=== PATIENT | female | born 1990 | race Caucasian/White ===

== ENCOUNTER 2019-07-04 23:25 | Inpatient (IN) | payer OTHER ==
[2019-07-05] MEDS: DEXTROSE 5%-LACTATED RINGERS 1,000 ML IV SCH ×2 (00:15→02:45)
[2019-07-05 00:58] LABS: BASO % 0.4 % (0-2.0); EOS % 0.8 % (0-4.5); HEMATOCRIT 31.6 % (32.4-45.2); LYMPH % 33.9 % (8-40); MCH 24.6 pg (25.7-33.7); MCHC 31.7 g/dl (32.0-36.0); MEAN CELL VOLUME 77.6 fl (80-96); MEAN PLT VOLUME 11.4 fl (7.5-11.1); MONO % 8.4 % (3.8-10.2); NEUT % 56.5 % (42.8-82.8); PLATELET COUNT 122 K/MM3 (134-434); RBC 4.07 M/mm3 (3.60-5.2); RDW 16.2 % (11.6-15.6); WHITE BLOOD COUNT 8.5 K/mm3 (4.0-10.0)
[2019-07-05 01:00] VITALS: BMI 25.7
--- NOTE | 2019-07-05 01:03 | HP ---
Past Medical History - Admission Chief Complaint: SROM History of Present Illness: 29yo @ 39.5wks here with SROM, occ ctx. No VB. 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 Weeks Gestation by Dates: 39.5 ...EDC by Dates: 07/06/19 Heme/Onc: Yes: Anemia (rx po iron & Pnv) Infectious Disease: Yes: STD's (HPV Hr pos). No: AIDS, C-Diff, Herpes Zoster, HIV, MRSA, Tuberculosis, VREF, Other Psych: No: Addictions, Anxiety, Bipolar, Depression, Panic, Psychosis, Schizophrenia, Other Rheumatology: No: Fibromyalgia, Gout, Lupus, Rheumatoid Arthritis, Sarcoidosis, Vasculitis, Other ENT: No: Allergic Rhinitis, Sinusitis, Other Endocrine: No: Gilchrist's Disease, Boise's Disease, Diabetes Insipidus, Diabetes Mellitus, Hyperparathyroidism, Hyperthyroidism, Hypothyroidism, Osteopenia, SIADH, Other - Past Surgical History Past Surgical History: Yes: None Hx Myomectomy: No Hx Transabdominal Cerclage: No - Smoking History Smoking history: Never smoked Have you smoked in the past 12 months: No Aproximately how many cigarettes per day: 0 - Alcohol/Substance Use Hx Alcohol Use: No History of Substance Use: reports: None - Social History Usual Living Arrangement: Yes: With Spouse Do you think of yourself as: Straight/Heterosexual ADL: Independent History of Recent Travel: No Home Medications - Allergies Allergies/Adverse Reactions: Allergies Allergy/AdvReac Type Severity Reaction Status Date / Time No Known Allergies Allergy Verified 09/02/16 20:32 - Home Medications Home Medications: Ambulatory Orders Vitamins (Sjr) - 1 tab PO DAILY tablet 09/05/15 Ferrous Sulfate [Feosol] 325 mg PO DAILY 09/02/16 Acetaminophen [Tylenol .Regular Strength -] 650 mg PO Q3H PRN #0 tablet Ferrous Sulfate [Feosol] 325 mg PO BIDWM ud 09/03/16 Ibuprofen [Motrin -] 200 mg PO Q4H PRN #0 tablet 09/03/16 Vitamins (Sjr) - 1 tab PO DAILY tablet 09/03/16 Review of Systems - Review of Systems Cardiovascular: denies: No Symptoms, Chest Pain, Edema, Palpitations, Shortness of Breath, Other Respiratory: denies: No Symptoms, Cough, Exercise Intolerance, Hemoptysis, Orthopnea, PND, Snoring, SOB, SOB on Exertion, Wheezing, Other Gastrointestinal: denies: No Symptoms, Abdominal Pain, Bloating, Constipation, Diarrhea, Dysphagia, Indigestion, Melena, Nausea, Rectal Bleeding, Vomiting, Vomiting Blood, Other Physical Exam - Maternity Vital Signs: Vital Signs Temperature 98.6 F 07/04/19 23:25 Pulse Rate 97 H 07/04/19 23:25 Respiratory Rate 07/04/19 23:25 Blood Pressure 122/83 07/04/19 23:25 O2 Sat by Pulse Oximetry (%) - Abdominal Exam/OB Number of Fetuses: Single Presentation: Vertex Contractions: Yes Regularity: Irregular Intensity: Mild Monitor Mode: External Heart Rate Location: Q Accelerations: Non-Uniform Decelerations: None - Vaginal Exam/OB Vaginal Bleediing: No Dilatation (cm): 2-3 Effacement (%): 50 Amniotic Membrane Status: Ruptured Nitrazine Test: Positive Presentation: Vertex/Position Station: -3 - Physical Exam Edema: No Assessment/Plan 29yo @ 39.5wks here with SROM, early labor Admit to L&D IVFs Cat I tracing Pitocin prn Anticipate Zulay Lou MD
[2019-07-05] MEDS ORDERED: OXYTOCIN 30 UNITS in 0.9% NS 30 UNIT/500 ML INFUS.BAG IVPB SCH (01:15)
[2019-07-05 01:24] LABS: BLOOD UREA NITROGEN 7.3 mg/dL (7-18); CALCIUM 8.5 mg/dL (8.5-10.1); CREATININE 0.6 mg/dL (0.55-1.3)
[2019-07-05 02:42] LABS: INR 0.94 (0.83-1.09); PROTHROMBIN TIME (PATIENT) 11.1 SEC (9.7-13.0)
[2019-07-05 02:45] LABS: ACTIVATED PTT 26.8 SECONDS (25.2-36.5)
[2019-07-05] MEDS ORDERED: ELECTROLYTE-148 SOLN 1,000 ML IV SCH (04:15)
[2019-07-05] MEDS ORDERED: FENTANYL/BUPIVACAINE/NS/PF - PCEA - 50 ML DISP.SYRIN EP ONE (04:18)
[2019-07-05] MEDS ORDERED: BUPIVACAINE HCL/PF 2.5 MG/ML - 30 ML VIAL IJ ONE (04:27)
[2019-07-05] MEDS ORDERED: LIDO 2%/EPI 1:200000 PRESRVFRE (20 ML SDVIAL) ONE (04:27)
[2019-07-05] MEDS ORDERED: NALOXONE HCL 0.4 MG/ML VIAL IVPUSH PRN (04:59)
[2019-07-05] MEDS ORDERED: FENTANYL/BUPIVACAINE/NS/PF - PCEA - 50 ML DISP.SYRIN EP SCH (05:00)
--- NOTE | 2019-07-05 06:45 | PN ---
Progress Note, Labor Vaginal Exam #1 Labor Exam Date: 07/05/19 Labor Exam Time: 06:44 Heart Rate (range): Cat I Dilatation: 4 Effacement (%): 50 Amniotic Membrane Status: Ruptured Presentation: Vertex/Position Station: -3 Remarks: Comfortable s/p epidural Pitocin @ 2mu/min Re-examine in 1-2 hours, no significant change yet despite 6+ hours SROM
--- NOTE | 2019-07-05 07:35 | PN ---
Progress Note, Labor Vaginal Exam #2 Labor Exam Date: 07/05/19 Labor Exam Time: 07:35 Heart Rate (range): Cat I Dilatation: 4 Effacement (%): 50 Amniotic Membrane Status: Ruptured Presentation: Vertex/Position Station: -3 Remarks: Unable to monitor contractions, IUPC placed. Pitocin @ 6mu/min Continue maddi Lou MD
--- NOTE | 2019-07-05 08:51 | PN ---
Progress Note, Labor Vaginal Exam #3 Labor Exam Date: 07/05/19 Labor Exam Time: 08:47 Heart Rate (range): Cat I Dilatation: 6 Effacement (%): 90 Amniotic Membrane Status: Ruptured Presentation: Vertex/Position Station: 0 Remarks: FHT Cat II with intermittent late decelerations Per nursing exam now 6cm with good descent Pitocin decreased with improvement in the tracing Anticipate KARIS Lou MD
--- NOTE | 2019-07-05 09:18 | PN ---
Progress Note, Labor Vaginal Exam #4 Labor Exam Date: 07/05/19 Labor Exam Time: 09:17 Heart Rate (range): Cat I Dilatation: 10 Effacement (%): 100 Amniotic Membrane Status: Ruptured Presentation: Vertex/Position Station: +1 Remarks: Pt feeling pressure Now complete Will start pushing Anticipate KARIS Lou MD
[2019-07-05] MEDS ORDERED: OXYTOCIN 20 UNITS in 0.9% NS 20 UNIT/1,000 ML INFUS.BAG IV ONE (09:22)
[2019-07-05] MEDS ORDERED: METHYLERGONOVINE MALEATE 0.2 MG/1 ML AMP IM PRN (09:42)
[2019-07-05] MEDS ORDERED: BISACODYL 10 MG SUPP.RECT RC PRN (09:42)
[2019-07-05] MEDS ORDERED: WITCH HAZEL 50% (TUCKS) 40 PAD/JAR PAD TP PRN (09:42)
[2019-07-05] MEDS ORDERED: BENZOCAINE 20% 57 GM BOTTLE TP PRN (09:42)
[2019-07-05] MEDS ORDERED: BENZOCAINE 28 GM HEMORRHOIDAL OINTMENT TP PRN (09:42)
--- NOTE | 2019-07-05 09:42 | PN ---
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 Epidural anesthesia. 39 week . Nuchal x 2 around the right leg, reduced after delivery. No meconium. Apgars 9/9. Weight pending to allow sufficient skin to skin. Spontaneous delivery of intact placenta with 3VC. Perineum inspected, first degree midline laceration noted, repaired with 2-0 chromic. Fundus firm. Mother and baby doing well. EBL 250. Tatyana Lou MD
[2019-07-05] MEDS ORDERED: OXYTOCIN 20 UNITS in 0.9% NS 20 UNIT/1,000 ML INFUS.BAG IV SCH (09:45)
[2019-07-05] MEDS ORDERED: PRENATAL VITAMINS W/ FOLIC ACID TABLET (FP) PO SCH (10:00)
[2019-07-05] MEDS: IBUPROFEN 600 MG TABLET (FP) PO PRN (18:38)
[2019-07-05] MEDS: ACETAMINOPHEN 325 MG TABLET (FP) PO PRN (18:39)
[2019-07-06 07:26] LABS: BASO % 0.4 % (0-2.0); HEMATOCRIT 30.3 % (32.4-45.2); HEMOGLOBIN 9.8 GM/dL (10.7-15.3); MCH 25.1 pg (25.7-33.7); MCHC 32.4 g/dl (32.0-36.0); MEAN CELL VOLUME 77.3 fl (80-96); MONO % 6.6 % (3.8-10.2); PLATELET COUNT 110 K/MM3 (134-434); RBC 3.91 M/mm3 (3.60-5.2); RDW 16.3 % (11.6-15.6); WHITE BLOOD COUNT 11.4 K/mm3 (4.0-10.0)
[2019-07-06] MEDS: ACETAMINOPHEN 325 MG TABLET (FP) PO PRN ×2 (08:26→17:31)
[2019-07-06] MEDS: IBUPROFEN 600 MG TABLET (FP) PO PRN ×2 (08:26→17:31)
[2019-07-06] MEDS: PRENATAL VITAMINS W/ FOLIC ACID TABLET (FP) PO SCH (11:01)
--- NOTE | 2019-07-06 11:05 | PN ---
Post Progress Note - Subjective Subjective: Doing well. Pain controlled. Amabulating without difficulty. Lochia less than menses Post Day: 1 Type of Delivery: Vital Signs: Vital Signs Temperature 98.4 F 07/05/19 22:40 Pulse Rate 77 07/05/19 22:40 Respiratory Rate 18 07/05/19 22:40 Blood Pressure 111/70 07/05/19 22:40 O2 Sat by Pulse Oximetry (%) 100 07/05/19 09:20 Uterus: Yes: Fundus below umbilicus Abdomen/GI: Yes: Abdomen soft, Passing flatus, Tolerating PO Lochia, amount: Small Extremities: Yes: Calves non-tender Perineum: Yes: Laceration Activity: Ambulating - Labs Labs: CBC WBC 11.4 K/mm3 (4.0-10.0) H 07/06/19 06:45 RBC 3.91 M/mm3 (3.60-5.2) 07/06/19 06:45 Hgb 9.8 GM/dL (10.7-15.3) L 07/06/19 06:45 Hct 30.3 % (32.4-45.2) L 07/06/19 06:45 MCV 77.3 fl (80-96) L 07/06/19 06:45 MCH 25.1 pg (25.7-33.7) L 07/06/19 06:45 MCHC 32.4 g/dl (32.0-36.0) 07/06/19 06:45 RDW 16.3 % (11.6-15.6) H 07/06/19 06:45 Plt Count 110 K/MM3 (134-434) L 07/06/19 06:45 MPV 11.0 fl (7.5-11.1) 07/06/19 06:45 Absolute Neuts (auto) 7.4 K/mm3 (1.5-8.0) 07/06/19 06:45 Neutrophils % 65.0 % (42.8-82.8) 07/06/19 06:45 Lymphocytes % 27.0 % (8-40) D 07/06/19 06:45 Monocytes % 6.6 % (3.8-10.2) 07/06/19 06:45 Eosinophils % 1.0 % (0-4.5) 07/06/19 06:45 Basophils % 0.4 % (0-2.0) 07/06/19 06:45 Nucleated RBC % 0 % (0-0) 07/06/19 06:45 Assessment/Plan 29yo s/p , PPD#1 Routine PP Care Labs reviewed D/C to home tomorrow Zulay Lou MD
[2019-07-06] MEDS ORDERED: SENNOSIDES/DOCUSATE COMBO (SENNA PLUS) TABLET (UD) PO PRN (22:00)
[2019-07-07 00:17] VITALS: TEMP 98.7
[2019-07-07 07:48] VITALS: BP 116/75; PULSE 71
--- NOTE | 2019-07-07 08:21 | DS ---
Physical Examination Vital Signs: Vital Signs Temperature 98.7 F 07/07/19 07:30 Pulse Rate 71 07/07/19 07:30 Respiratory Rate 18 07/07/19 07:30 Blood Pressure 116/75 07/07/19 07:30 O2 Sat by Pulse Oximetry (%) 100 07/05/19 09:20 Constitutional: Yes: Well Nourished, No Distress, Calm Eyes: Yes: WNL, Conjunctiva Clear, EOM Intact HENT: Yes: WNL, Atraumatic, Normocephalic Neck: Yes: WNL, Supple, Trachea Midline Cardiovascular: Yes: WNL, Regular Rate and Rhythm Respiratory: Yes: WNL, Regular, CTA Bilaterally Gastrointestinal: Yes: WNL, Normal Bowel Sounds Musculoskeletal: Yes: WNL Extremities: Yes: WNL Edema: No Integumentary: Yes: WNL Neurological: Yes: WNL, Alert, Oriented ...Motor Strength: WNL Psychiatric: Yes: WNL Labs: CBC, BMP 07/06/19 06:45 07/05/19 00:15 Discharge Summary Problems reviewed: Yes Reason For Visit: LABOR Procedures: Principal: Hospital Course: Patient presented with SROM She had an uncomplicated She met all milestones She was discharged home on PPD#2 MPercy Lou MD Condition: Stable - Instructions Diet, Activity, Other Instructions: Regular Diet Call [facility] and make appt. to be seen in 4 to 6 weeks. If pain, fever, or heavy bleeding, call M.D. Referrals: Tatyana Lou MD [Staff Physician] - Disposition: HOME - Home Medications Comprehensive Discharge Medication List: Ambulatory Orders Ferrous Sulfate [Feosol] 650 mg PO DAILY 09/02/16 Vitamins (Sjr) - 1 tab PO DAILY tablet 09/03/16 Ibuprofen [Motrin -] 600 mg PO QID PRN #28 tablet 07/06/19
[2019-07-07] MEDS: PRENATAL VITAMINS W/ FOLIC ACID TABLET (FP) PO SCH (09:13)
[2019-07-08 09:00] LABS: POC NITRAZINE POS
== END 2019-07-07 11:30 | disposition home or self-care (01) | DRG 560 ==
LOC: JLDR 23:25 → J3W 07-05 14:15
PROVIDERS: ADMIT Obstetrics & Gynecology; ATTEND Obstetrics & Gynecology
PROC: 0HQ9XZZ Repair Perineum Skin, External Approach (ICD-10-PCS; principal; 2019-07-05)
PROC: 10E0XZZ Delivery of Products of Conception, External Approach (ICD-10-PCS; 2019-07-05)
DX: O70.0 First degree perineal laceration during delivery (principal); Z3A.39 39 weeks gestation of pregnancy; Z37.0 Single live birth
CPT/HCPCS: 36415; 59409; 80048; 83986-QW; 85025; 85610; 85730; 86593; 86850; 86870; 86900; 86901; 86902

== ENCOUNTER 2019-08-27 15:05 | Day surgery (SDC) | payer OTHER ==
[2019-08-26 09:58] VITALS: BMI 21.7
--- NOTE | 2019-08-27 13:12 | HP ---
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 No: Ascites, Cancer, Constipation, Crohn's Disease, Diverticulitis, Diverticulosis, Esophageal Varices, Gastritis, GERD, GI Bleed, Hiatal Hernia, Inflamatory Bowel Disease, Irritable Bowel Disease, Pancreatitis, Peptic Ulcer Disease, Ulcerative Colitis, Other Renal/: Yes: UTI (before pregn). No: Renal Failure, Renal Inusuff, BPH, Cancer, Hematuria, Hemodialysis, Neurogenic Bladder, Renal Calculi, Other Reproductive: No: Ectopic , Endometriosis, Fibroids, PID, Polycystic Ovary Syndrome, Postmenopausal, Other ...LMP: 09/21/18 ...LMP Comment: PT. HAD A BABY IN JUNE ...: No Heme/Onc: Yes: Anemia (rx po iron & Pnv) Infectious Disease: Yes: STD's (HPV Hr pos). No: AIDS, C-Diff, Herpes Zoster, HIV, MRSA, Tuberculosis, VREF, Other Psych: No: Addictions, Anxiety, Bipolar, Depression, Panic, Psychosis, Schizophrenia, Other Musculoskeletal: No: Bursitis, Chronic low back pain, Hemiparesis, Hemiplegia, Osteoarthritis, Paraplegia, Other Rheumatology: No: Fibromyalgia, Gout, Lupus, Rheumatoid Arthritis, Sarcoidosis, Vasculitis, Other Endocrine: No: Javier's Disease, Gracy's Disease, Diabetes Insipidus, Diabetes Mellitus, Hyperparathyroidism, Hyperthyroidism, Hypothyroidism, Osteopenia, SIADH, Other - Past Surgical History Past Surgical History: Yes: None - Smoking History Smoking history: Never smoked Have you smoked in the past 12 months: No Aproximately how many cigarettes per day: 0 - Alcohol/Substance Use Hx Alcohol Use: No History of Substance Use: reports: None - Social History Usual Living Arrangement: Yes: With Spouse ADL: Independent History of Recent Travel: No Home Medications - Allergies Allergies/Adverse Reactions: Allergies Allergy/AdvReac Type Severity Reaction Status Date / Time No Known Allergies Allergy Verified 07/05/19 06:51 - Home Medications Home Medications: Ambulatory Orders Vitamins (Sjr) - 1 tab PO DAILY tablet 09/03/16 Ibuprofen [Motrin -] 600 mg PO PRN PRN 08/26/19 Physical Examination Vital Signs: Vital Signs Temperature 98.2 F 08/27/19 12:58 Pulse Rate 65 08/27/19 12:58 Respiratory Rate 18 08/27/19 12:58 Blood Pressure 114/62 08/27/19 12:58 O2 Sat by Pulse Oximetry (%) 99 08/27/19 12:57 Problem List - Problems (1) Sterilization Code(s): Z30.2 - ENCOUNTER FOR STERILIZATION Assessment/Plan 29yo here for sterilization NPO, IVFs SCDs Risks (GETA, bleeding, infection, injury to bladder/bowel/ovaries/vessels) and alternatives reviewed, declined LARCS. All questions answered. Proceed with LSC b/l salpingectomy. Zulay Lou MD
[~2019-08-27 15:05] MED LIST: LACTATED RINGERS SOLUTION 1,000 ML IV SCH; ONDANSETRON 4 MG/2 ML VIAL IVPUSH PRN; PROMETHAZINE HCL 25 MG/1 ML VIAL IVPUSH PRN
[2019-08-27] MEDS ORDERED: BUPIVACAINE HCL/PF 0.5% (5 MG/ML) 30 ML VIAL IJ ONE (15:29)
--- NOTE | 2019-08-27 16:37 | SURG ---
Surgery Cmm Technician Note Cmm Technician: Chavez Noyola PA-C Date of Service: 08/27/19 Diagnosis: Voluntary sterilization Procedure: Laproscopic bilateral salpingectomy I was present for the entirety of the operative procedure. For further detail, please refer to operative report. Visit type - Case Type Case Type: Scheduled - Emergency Emergency Visit: No - New patient This patient is new to me today: Yes Date on this admission: 08/27/19 - Critical Care Critical Care patient: No
--- NOTE | 2019-08-27 16:53 | OP ---
Operative Note - Note: Operative Date: 08/27/19 Pre-Operative Diagnosis: Desires Permanent Sterilization Operation: Laparoscopic Bilateral Salpingectomy Findings: Normal uterus, normal tubes and ovaries Post-Operative Diagnosis: Same as Pre-op Surgeon: Tatyana Lou Paper Twister Tender: Chavez Noyola Anesthesia: General Specimens Removed: Bilateral Fallopian Tubes Estimated Blood Loss (mls): 25 Drains, Volume Out (mls): 100 (clear) Operative Report Dictated: Yes
[2019-08-27 17:54] VITALS: BP 124/78; PULSE 75; TEMP 98.2
[2019-08-27] MEDS ORDERED: ONDANSETRON 4 MG/2 ML VIAL IVPUSH ONE (18:15)
--- NOTE | 2019-08-28 14:30 | OP ---
DATE OF OPERATION: 08/27/2019 PREOPERATIVE DIAGNOSIS: Desires permanent sterilization. POSTOPERATIVE DIAGNOSIS: Desires permanent sterilization. PROCEDURE: Laparoscopic bilateral salpingectomy. SURGEON: Tatyana Lou MD LEGAL SERVICES PROFESSIONAL: BOLA Young ANESTHESIA: General. ESTIMATED BLOOD LOSS: 25 mL. IV FLUIDS: Per anesthesia record. URINE OUTPUT: 100 mL of clear urine at the end of the procedure. FINDINGS: Normal uterus. Normal tubes. Normal ovaries. COMPLICATIONS: None. CONDITION: Stable to recovery room. DESCRIPTION OF PROCEDURE: After the appropriate consents were signed, the patient was taken to the operating room where general anesthesia was administered. She was placed in lithotomy position. The abdomen and pelvis were prepped and draped in a normal sterile fashion. A sterile Mulligan catheter was inserted into the bladder. Time-out was performed confirming correct patient and procedure. Marcaine was injected into the umbilicus. A 5-mm incision was made with a scalpel to accommodate 5-mm laparoscope, which was introduced under direct visualization. Placement was confirmed. The abdomen was insufflated with gas. The patient was placed in Trendelenburg position. A right lower quadrant and a left lower quadrant 5-mm port was inserted under direct visualization. No difficulty was noted with placement. The bowel was swept out of the patient's pelvis. Normal retroverted uterus was seen. Normal fallopian tubes bilaterally. Normal ovaries bilaterally. The patient's left fallopian tube was grasped, carried through to the fimbriated edges, which were noted to be normal. Using the LigaSure device in subsequent bites, the fallopian tube was ligated and freed of its connection. It was transected at the insertion into the uterus. The bite sites were noted to be hemostatic. The patient's fallopian tube was then removed through the right lower quadrant port. Attention was then paid to the right fallopian tube, which was grasped with a thick clamp, carried through to the fimbriated ends, which were noted to be normal. Subsequent bites along the mesosalpinx. The fallopian tube was ligated and then freed after transection at insertion point to the uterus. Patient's fallopian tube was then also removed at the right lower quadrant port. Bite sites were noted to be hemostatic. Abdomen was deflated of gas. The bite sites were re-examined. Also noted to still be hemostatic. The left lower quadrant and right lower quadrant ports were removed under direct visualization. The patient's umbilical port was then also removed. The incision sites were closed with 4-0 Biosyn. Bandages were placed. All sponge, lap, needle counts were correct x3. The patient did not receive any antibiotics. Mulligan catheter was removed in the operating room. She was taken from the operating room to the recovery area in stable condition. MD CORINE [id number]
--- NOTE | 2019-09-01 16:38 | PATH ---
Surgical Pathology Report Patient Name: STEPHANIE RIGGS [facility]. Rec. #: [id number] /Age/Gender: 1990 (Age: 29) / F Account: [id number] Location: [facility] SURGICAL Taken: 08/27/2019 Received: 08/28/2019 Reported: 09/01/2019 Physicians: Tatyana Lou Specimen(s) Received A: RIGHT FALLOPIAN TUBE B: LEFT FALLOPIAN TUBE Clinical History Desired permanent sterilization Final Diagnosis A. FALLOPIAN TUBE, RIGHT, LAPAROSCOPIC SALPINGECTOMY: FALLOPIAN TUBE WITH ENDOSALPINGOSIS (INCLUDING FIMBRIATED END AND FULL LUMINAL PORTION). B. FALLOPIAN TUBE, LEFT, LAPAROSCOPIC SALPINGECTOMY: FALLOPIAN TUBE WITH ENDOSALPINGOSIS AND PARATUBAL CYST (INCLUDING FIMBRIATED END AND FULL LUMINAL PORTION). Electronically Signed Emelia Leon M.D. Gross Description A. Received in formalin labeled "right fallopian tube," is a 4 cm in length fimbriated fallopian tube. The outer surface is hartman-law and smooth. Sectioning reveals an unremarkable lumen. Tubing Oiler sections are submitted in 2 cassettes as follows: 1-fimbria; 2-cross sections of fallopian tube. B. Received in formalin labeled "left fallopian tube," are 3 portions of fallopian tube ranging from 1.5-2.5 cm in length. The longest portion is fimbriated. The outer surfaces are hartman-pink and smooth. Sectioning reveals an unremarkable lumen. Tubing Oiler sections are submitted in 2 cassettes as follows: 1-fimbria; 2-cross sections of fallopian tube. 08/28/2019 [facility]08/28/2019
== END 2019-08-27 19:10 | disposition home or self-care (01) ==
LOC: JASU-SURG 15:05
PROVIDERS: ATTEND Obstetrics & Gynecology
PROC: 0UT74ZZ Resection of Bilateral Fallopian Tubes, Percutaneous Endoscopic Approach (ICD-10-PCS; principal; 2019-08-27 14:00)
DX: Z30.2 Encounter for sterilization (principal)
CPT/HCPCS: 84703; 88302-TC; 94760